=== PATIENT | female | born 1965 ===

== ENCOUNTER 2020-07-02 21:45 | Inpatient (IN) | payer OTHER ==
[~2020-07-02 21:45] MED LIST: Ketamine 50 MG/ML (10ML VIAL) ONE
[2020-07-02 22:15] LABS: Acetaminophen Less than 6.0 mcg/mL (10.0-30.0); Alcohol Less than 10 mg/dL (Less than 10)
[2020-07-02 22:16] LABS: ALT (SGPT) 17 U/L (8-55); AST (SGOT) 19 U/L (5-34); Albumin 4.5 g/dL (3.5-5.0); Alkaline Phosphatase 67 U/L (40-110); Anion Gap 16 mmol/L (10-20); BUN (Urea Nitrogen) 22 mg/dL (9.8-20.1); Bilirubin, Total 0.3 mg/dL (0.2-1.2); Calc. Creatinine Clearance 0 mL/min (70-130); Calcium 9.6 mg/dL (7.8-10.44); Carbon Dioxide 22 mmol/L (22-29); Chloride 109 mmol/L (98-107); Globulin 2.8 g/dL (2.4-3.5); Glucose 132 mg/dL (70-105); Protein, Total 7.3 g/dL (6.0-8.3); Sodium 143 mmol/L (136-145)
[2020-07-02 22:27] LABS: #Monocytes 0.5 10x3/uL (0.0-1.1); #Neutrophils 6.8 10x3/uL (1.5-8.4); %Basophils 0.4 % (0.0-2.0); %Eosinophils 0.3 % (0.0-6.0); %Lymphocytes 18.5 % (18.0-47.0); %Monocytes 5.8 % (0.0-10.0); %Neutrophils 74.6 % (40.0-75.0); Hemoglobin 12.2 g/dL (12.0-15.5); Mean Corpuscular Hemoglobin 28.8 pg (27.0-33.0); Mean Corpuscular Volume 92.9 fl (81.6-98.3); Mean Platelet Volume 9.5 fl (7.4-10.4); Platelet Count 349 10x3/uL (150-450); RBC Distribution Width 15.5 % (11.5-14.5); Red Blood Cell (RBC) Count 4.23 10x6/uL (3.90-5.03); White Blood Cell (WBC) Count 9.1 10x3/uL (3.5-10.5)
[2020-07-02 22:53] LABS: Bilirubin Neg (Negative); Blood, Urine Negative (Negative); Clarity Clear (Clear); Glucose, Urine (Dipstick) Normal (Negative); Ketone, Urine Negative (Negative); Leukocyte Negative (Negative); Nitrite Negative (Negative); Protein, Urine (Dipstick) Negative (Neg-Trace); Specific Gravity, Urine 1.015 (1.002-1.036); Urobilinogen Normal mg/dL (Less than 2)
[2020-07-02 22:56] LABS: Pregnancy Test - Urine (BHCG) Negative (Negative); Pregu Control Background? CLEAR/WHITE (CLR/WHITE); Pregu Control Bar Appear? YES (CONTROL BAR); Specific Gravity 1.015 (1.002-1.036)
[2020-07-02 23:00] LABS: Amphetamine Not Detected (NotDetected); Barbiturates Screen Not Detected (NotDetected); Benzodiazepine Screen Detected (NotDetected); Cocaine Metabolite Screen Detected (NotDetected); Methadone Not Detected (NotDetected); Methamphetamine Not Detected (NotDetected); Opiate Screen Not Detected (NotDetected); Oxycodone Screen Not Detected (NotDetected); Phencyclidine (PCP) Not Detected (NotDetected); THC/Cannabinoid Screen Not Detected (NotDetected); Tricyclic Screen Not Detected (NotDetected)
[2020-07-03] MEDS ORDERED: Guaifenesin DM 100-10/5 ML UDCUP PO PRN (06:12)
[2020-07-03] MEDS ORDERED: Ondansetron PF 4 MG/2 ML Vial IVP PRN (06:12)
[2020-07-03] MEDS ORDERED: Senokot S 8.6-50 MG TAB PO PRN (06:12)
[2020-07-03] MEDS ORDERED: Calcium Carbonate 500 MG ChewTAB PO PRN (06:12)
[2020-07-03] MEDS ORDERED: Lactated Ringer's 1,000 ML IV SCH (06:15)
[2020-07-03] MEDS ORDERED: Sodium Chloride 0.9% 1,000 ML IV SCH (06:15)
[2020-07-03] MEDS ORDERED: cloNIDine 0.1mg/24 Hour PATCH TD SCH (11:30)
[2020-07-03 11:35] LABS: ALT (SGPT) 15 U/L (8-55); AST (SGOT) 18 U/L (5-34); Albumin 4.4 g/dL (3.5-5.0); Alkaline Phosphatase 65 U/L (40-110); Anion Gap 14 mmol/L (10-20); BUN (Urea Nitrogen) 17 mg/dL (9.8-20.1); Bilirubin, Total 0.4 mg/dL (0.2-1.2); Calc. Creatinine Clearance 0 mL/min (70-130); Calcium 9.4 mg/dL (7.8-10.44); Carbon Dioxide 23 mmol/L (22-29); Chloride 112 mmol/L (98-107); Globulin 2.7 g/dL (2.4-3.5); Glucose 93 mg/dL (70-105); Magnesium 1.9 mg/dL (1.6-2.6); Potassium 3.7 mmol/L (3.5-5.1); Protein, Total 7.1 g/dL (6.0-8.3); Sodium 145 mmol/L (136-145)
[2020-07-03] MEDS: Aspirin 81 mg Enteric Coated Tablet PO SCH (11:46)
[2020-07-03] MEDS: Acetaminophen 325 MG TAB PO PRN ×2 (11:46→20:07)
[2020-07-03] MEDS: Famotidine/PF 20 mg/2ml Vial SLOW IVP SCH ×2 (11:48→20:09)
[2020-07-03] MEDS: Enoxaparin Sodium 40 MG/0.4 ML SYRINGE SC SCH (11:50)
[2020-07-03] MEDS ORDERED: Multivitamins, Adult 10 ML, Folic Acid 1 MG, Thiamine HCl 100 MG in Dextrose 5 %-0.45 %... IV SCH (12:30)
[2020-07-03 14:23] VITALS: BMI 26.7
[2020-07-03] MEDS ORDERED: Melatonin 3 MG TAB PO SCH (22:00)
[2020-07-04] MEDS: Acetaminophen 325 MG TAB PO PRN ×4 (00:20→19:16)
[2020-07-04] MEDS: Enoxaparin Sodium 40 MG/0.4 ML SYRINGE SC SCH (10:26)
[2020-07-04] MEDS: Aspirin 81 mg Enteric Coated Tablet PO SCH (10:27)
[2020-07-04] MEDS: Famotidine/PF 20 mg/2ml Vial SLOW IVP SCH ×2 (10:27→21:28)
[2020-07-04] MEDS ORDERED: Nicotine 21 MG PATCH TD SCH (13:30)
[2020-07-04 13:42] LABS: SARS-CoV-2 PCR by NAA Not Detected (NotDetected)
[2020-07-04] MEDS: Naproxen 500 MG TAB PO PRN ×2 (13:58→21:41)
[2020-07-04] MEDS ORDERED: Multivitamins, Adult 10 ML, Folic Acid 1 MG, Thiamine HCl 100 MG in Dextrose 5 %-0.45 %... IV SCH (14:00)
[2020-07-04] MEDS: Multivitamins, Adult 10 ML, Folic Acid 1 MG, Thiamine HCl 100 MG in Dextrose 5 %-0.45 %... IV SCH (19:16)
[2020-07-04] MEDS ORDERED: Melatonin 3 MG TAB PO SCH (21:45)
[2020-07-04] MEDS ORDERED: traMADol HCl 50 MG TAB PO SCH (23:15)
[2020-07-05] MEDS: Acetaminophen 325 MG TAB PO PRN (05:14)
[2020-07-05] MEDS ORDERED: Famotidine/PF 20 mg/2ml Vial ONE (07:40)
[2020-07-05] MEDS: Enoxaparin Sodium 40 MG/0.4 ML SYRINGE SC SCH (07:46)
[2020-07-05] MEDS: Aspirin 81 mg Enteric Coated Tablet PO SCH (07:46)
[2020-07-05] MEDS: Naproxen 500 MG TAB PO PRN (07:46)
[2020-07-05] MEDS ORDERED: Nicotine 21 MG PATCH TD SCH (09:00)
[2020-07-05] MEDS: clonazePAM 0.5 MG TAB PO PRN ×2 (13:57→19:15)
[2020-07-05] MEDS: traMADol HCl 50 MG TAB PO PRN ×2 (13:57→19:15)
[2020-07-05] MEDS: Famotidine/PF 20 mg/2ml Vial SLOW IVP SCH (13:58)
[2020-07-05] MEDS: Multivitamins, Adult 10 ML, Folic Acid 1 MG, Thiamine HCl 100 MG in Dextrose 5 %-0.45 %... IV SCH (19:16)
[2020-07-05] MEDS ORDERED: Rocuronium Bromide 10 MG/ML (10ML VIAL) ONE (19:46)
[2020-07-05 20:29] VITALS: BP 134/78; TEMP 97.9
[2020-07-05] MEDS ORDERED: Famotidine 20 MG TAB PO SCH (21:00)
== END 2020-07-05 20:45 | DRG 917 ==
LOC: CSHERS 21:45 → CSHTELE 07-03 06:12 → INTOOBSV 07-03 10:25 → CSHTELE 07-03 10:25 → UNDOADMOB 07-03 10:25 → OBSVTOIN 07-05 11:31
PROVIDERS: ADMIT Internal Medicine; ATTEND Internal Medicine
DX: T50.993A Poisoning by other drugs, medicaments and biological substances, assault, initial encounter (principal); G92 Toxic encephalopathy; F33.9 Major depressive disorder, recurrent, unspecified; Z20.822 Contact with and (suspected) exposure to COVID-19; F41.9 Anxiety disorder, unspecified; F17.210 Nicotine dependence, cigarettes, uncomplicated; F14.10 Cocaine abuse, uncomplicated; R40.0 Somnolence; S90.01XA Contusion of right ankle, initial encounter; N19 Unspecified kidney failure; G89.29 Other chronic pain; Z79.82 Long term (current) use of aspirin; Z79.891 Long term (current) use of opiate analgesic; Z79.899 Other long term (current) drug therapy; Z91.89 Other specified personal risk factors, not elsewhere classified; R00.0 Tachycardia, unspecified; W19.XXXA Unspecified fall, initial encounter
CPT/HCPCS: 36415; 51701; 70450; 71045; 80053; 80306; 80307; 81003; 81025; 82550; 83735; 85025; 85652; 86140; 87635; 93005; 96372; 96374; 96375; 96376; G0378; J1650; J3411; J7042; S0028; U0003; U0005